=== PATIENT | male | born 1960 | race Caucasian/White ===

== ENCOUNTER 2025-04-09 08:40 | Day surgery (SDC) | payer OTHER, SELFPAY ==
[2025-04-09 09:13] VITALS: BP 104/74; PULSE 55; RESP 16; TEMP 36.6; O2SAT 100
[2025-04-09 09:14] VITALS: BMI 24.3
[2025-04-09] MEDS: SODIUM CHLORIDE 0.9 % (FLUSH) 10 ML SYRINGE IVF (09:30)
[2025-04-09] MEDS: LACTATED RINGERS 1000 ML 1,000 ML 100 ML IV (09:30)
[2025-04-09] MEDS: BUPIVACAINE 0.25% 30 ML INJECTION (10:15)
[2025-04-09 10:43] VITALS: BP 101/70; PULSE 57; RESP 16; TEMP 36.5; O2SAT 98
--- NOTE | 2025-04-09 10:43 | P.ANES_ITS ---
Anesthesia Charges Start Date/Time Anesthesia Start Date: 04/09/25 Anesthesia Start Time: 10:04 Stop Date/Time Anesthesia Stop Date: 04/09/25 Anesthesia Stop Time: 10:46 Coding CPT Codes CPT Codes: ANESTH LOWER LEG BONE SURG - 15359 ([id number]) P2 - PATIENT W/MILD SYST DISEASE, QK - MARKETING STRATEGY ANALYST 2-4 CNCRNT ANES PROC, QX - RUG INSPECTOR SVC W/ MD MED DIRECTION
--- NOTE | 2025-04-09 10:43 | W.ANESCHARGE ---
Anesthesia Charges Start Date/Time Anesthesia Start Date: 04/09/25 Anesthesia Start Time: 10:04 Stop Date/Time Anesthesia Stop Date: 04/09/25 Anesthesia Stop Time: 10:46 Coding CPT Codes CPT Codes: ANESTH LOWER LEG BONE SURG - 27049 ([id number]) P2 - PATIENT W/MILD SYST DISEASE, QK - RIBBON LAP MACHINE TENDER 2-4 CNCRNT ANES PROC, QX - ENGRAVING PRESS OPERATOR SVC W/ MD MED DIRECTION
--- NOTE | 2025-04-09 10:52 | W.PM.PODPROC ---
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 Fifth toe was underlapping the 4th toe. We discussed reconstruction of the 4th toe and 5th toe versus amputation 5th toe. The recommendation is amputation of the 5th toe as he already has dropped foot. I reviewed the procedure, recovery, expectation potential complications. These include but not limited to: Poor wound healing, infection, continued pain, potentially future surgery, deep venous thrombosis, pulmonary embolism possible . He understands risks written consent was obtained. Site marked. Procedure Description: Patient brought the operating room placed supine position on operating table. IV sedation was initiated local anesthetic injected into the right foot. He was prepped and draped in sterile fashion. Standard time-out protocol followed. Right foot was exsanguinated the tourniquet inflated. A linear incision was started on the dorsal aspect of the 5th metatarsal phalangeal joint hand then diverged medial and lateral to then converged at the plantar base of the toe. Incision was carried down to bone. Toe was then disarticulated at the metatarsophalangeal joint and removed. All bleeding vessels cauterized. Tourniquet was released no active bleeding noted. Medial and lateral flaps were then brought together and sutured with 3-0 nylon. Sterile dressing was applied. She was transferred from OR to same-day surgery with vital signs stable and vascular status intact. He was given both written and verbal consent instructions. He is weight-bearing as tolerated. He is given oxycodone for pain. Follow up in clinic in 2 days. Anesthesia: MAC and local Hemostasis: ankle Estimated blood loss (mL): 2 Specimens: none sent Disposition: same day
[2025-04-09 11:00] VITALS: BP 115/81; PULSE 55; RESP 16; O2SAT 97
--- NOTE | 2025-04-09 11:06 | P.ANES_ITS ---
Anesthesia Charges Start Date/Time Anesthesia Start Date: 04/09/25 Anesthesia Start Time: 10:04 Stop Date/Time Anesthesia Stop Date: 04/09/25 Anesthesia Stop Time: 10:46 Coding CPT Codes CPT Codes: ANESTH LOWER LEG BONE SURG - 99718 ([id number]) P2 - PATIENT W/MILD SYST DISEASE, QK - HALAL MEAT PACKER 2-4 CNCRNT ANES PROC, QX - UPKEEP WORKER SVC W/ MD MED DIRECTION
--- NOTE | 2025-04-09 11:06 | W.ANESCHARGE ---
Anesthesia Charges Start Date/Time Anesthesia Start Date: 04/09/25 Anesthesia Start Time: 10:04 Stop Date/Time Anesthesia Stop Date: 04/09/25 Anesthesia Stop Time: 10:46 Coding CPT Codes CPT Codes: ANESTH LOWER LEG BONE SURG - 20181 ([id number]) P2 - PATIENT W/MILD SYST DISEASE, QK - STRETCHER DRIER OPERATOR 2-4 CNCRNT ANES PROC, QX - URBAN SOCIOLOGIST SVC W/ MD MED DIRECTION
[2025-04-09 11:15] VITALS: BP 93/70; PULSE 55; RESP 16; O2SAT 98
--- NOTE | 2025-04-09 11:35 | SUR.PHASEII ---
Patient awake and went to restroom using walker. Patient wants to walk around for awhile. Encourage to sit in the chair with his leg elevated for a little while yet.
[2025-04-09 11:38] VITALS: BP 106/73; PULSE 58; RESP 16; O2SAT 99
== END 2025-04-09 11:59 | disposition home or self-care (01) ==
PROVIDERS: PCP Family Medicine; Visit Provider Podiatrist
PROC: (CPT 28820; principal; 2025-04-09 10:00)
DX: M20.41 Other hammer toe(s) (acquired), right foot (principal); M21.371 Foot drop, right foot
CPT/HCPCS: 28820; 01480; J0665; J0690; J1100; J2405; J2704; J3010; J3490; J7120